=== PATIENT | female | born 1950 | race Caucasian/White ===

== ENCOUNTER 2017-05-23 15:47 | Inpatient (IN) ==
[2017-05-23] MEDS ORDERED: NS 1,000 ML IV ONE ×2 (15:53→17:04)
[2017-05-23] MEDS ORDERED: ONDANSETRON 4 MG/2 ML INJECTION IVP PRN (15:55)
--- NOTE | 2017-05-23 16:05 | History & Physical Report ---
History of Present Illness Date: 05/23/17 Chief complaint: empyema, squamous cell carcinoma postresection, C. difficile HPI: Mrs Abarca is a complicated 66 yr old female who underwent a left lower lobe resection secondary to squamous cell carcinoma 04/09/17 at [facility] under the care of Dr. Jens Navarro. She had been discharged, however, followed with Dr. Navarro in the outpatient setting on May 08 and was found to be dehydrated with difficult oral intake. She was then found to have a left hemothorax with empyema. She was readmitted to [facility] from 05/08/17 through 05/17/17 for ongoing treatment. She was also under the care of not only Dr. Jens Navarro, but also Dr. Wayne with infectious disease. Initially she had a pigtail catheter placed in the left lung. Intrapleural TPA was administered into pigtail catheter for 2 days, with a good output. The tube was then removed once drainage improved. It is reported that she did have an episode of atrial fibrillation during her hospital stay. He did continue to require oxygen since her initial surgery. Once she was stable for discharge. She was sent to [facility] care of [place] on 05/17/17 to continue on IV vancomycin through 06/06/17 under the care of Dr. Wayne. Today Earlene was seen by Dr Arellano for follow up. Patient labs were obtained earlier in the day, revealing a white count of 13.6, hemoglobin of 8, hematocrit 27.4, platelet count 595, 83% neutrophils. He was 138, potassium 5.0 , BUN 35, creatinine 2.9. Transaminases are found to be elevated, AST-726, ALT- 253, alkaline phosphatase-221, LDH-20-83. Outpatient chest x-ray was obtained that did show a stable moderate left pleural effusion. Creatinine noted from 05/17 was 0.74 .Patient was on previous tx for C. difficile as well as IV vancomycin and Diflucan. Given these significant lab changes accompanied with complex medical comorbidities. The hospitalist services were contacted and accepted patient for direct admission to the ICU for further medical evaluation and workup. Patient is seen on arrival to [facility]. She does appear to be pale , yellow, frail. She is alert, able to give accurate history. She does report since discharge on 05/17/17. She has continued to "go downhill" with general fatigue and weakness. She describes this as "feeling sick all over". She reports having discomfort in her chest. Since her lung resection on 04/09/17. She states this pain has not changed since that time. He has continued to be on chronic oxygen since then. We did discuss advanced directives and she does wish to be a do not resuscitate. Recent comparable labs from 05/17/17 AST 19 ALT 18 Creatinine 0.74 Hemoglobin-7.3. Platelets-250 Vanco trough from 05/15/17-12.5 Culture and sensitivity from left pleural fluid collected on 05/09/17 is reviewed. This did reveal of Streptococcus Anginosus, sensitive to Rocephin, Levaquin, vancomycin. Patient has a known anaphylaxis ALLERGY to penicillin. Review of Systems All systems PM: 10-point ROS was reviewed, no additional remarkable complaints except - Constitutional Constitutional: Present: lethargy, malaise, weakness - Cardiovascular Cardiovascular: Present: chest pain (ongoing) - Gastrointestinal Gastrointestinal: Present: diarrhea, nausea - Integumentary/Breasts Integumentary Comments: bilateral lower ext edema Past Medical History A-fibrillation S/P left lower lobe, resection-squamous cell carcinoma Recent history of C. difficile Hypertension COPD GERD Anemia Chronic tobacco dependence Brain meningioma Surgical History: Left lower lobectomy- 04/09/17 (Dr Gilbert). Appendectomy. Hysterectomy. Abdominal surgeries for adhesions. Right knee scope. Right rotator cuff repair Family History Updates: Father-COPD. Mother-[place]. 7 Siblings- positive history for brain cancer, lung cancer, pancreatic cancer - Social History Smoking status: Former smoker (48 pk yr smoker) Substance use type: does not use Alcohol intake frequency: does not drink Housing: house Household members: children Social history: NO Local PCP Following with Dr Mendoza at [facility] of [place] Oncologist- Dr Arellano Medications Allergies Allergy/AdvReac Type Severity Reaction Status Date / Time cephalexin [From Keflex] Allergy Severe Anaphylactic Verified 05/05/17 23:22 Shock morphine Allergy Severe Anaphylactic Verified 05/05/17 23:22 Shock Penicillins Allergy Severe Anaphylactic Verified 05/05/17 23:22 Shock Exam Telemetry Rhythm: Sinus Rhythm - Constitutional Present: mild distress, well nourished, well developed - Routine HEENT Exam Eye: Present: EOMI ENT: Present: mucous membranes dry, dentition normal - Routine Respiratory Exam Present: crackles. Absent: wheezes - Routine Cardiovascular Exam Present: RRR, S1, S2. Absent: murmur - Routine Abdominal Exam Present: soft, normoactive bowel sounds, non distended. Absent: tenderness - Routine Extremities Exam Present: edema (bilateral lower ext edema) - Routine Skin Exam Present: intact, pallor, warm - Routine Neurological Exam Present: alert, oriented X3, CN II-XII intact - Routine Psychiatric Exam Present: normal affect, cooperative Results - Labs CBC & Chem 7: 05/23/17 16:17 05/23/17 16:18 Assessment and Plan (1) JOSE LUIS (acute kidney injury) Current visit: Yes Status: Acute (2) Transaminitis Current visit: Yes Status: Acute Assessment and Plan: Impression Suspect septic shock - Leukocytosis, hypotension - known infection (empyema) Acute kidney injury- creatinine on admission 3.0, up from baseline 0.7 Transaminitis-present on admission Elevated INR- POA- 5.48 Leukocytosis- POA- 12.6 Anemia- Chronic Thrombocytosis Recent C. difficile- Tx course completed Recent resection of squamous cell carcinoma, status post lobectomy Recent and continued treatment for empyema Chronic respiratory failure with hypoxia postoperatively Atrial fibrillation-chronic anticoagulation on Eliquis COPD GERD Plan Admit patient to ICU under the care of Dr. Lantigua for above listed acute illnesses, accompanied with chronic comorbidities. Obtain the following laboratory studies on admission, CBC, CMP, INR, LDH, magnesium, phosphorus, lactate, blood cultures 2 Obtain Vanco trough on admission. It appears that vancomycin has been held since 05/20 as off was reported to be elevated over 40. Place for pharmacist. Patient is to be on vancomycin treatment through 06/06/17 as per recent infectious disease recommendations. This consultation to Dr. Esteban to continue to follow patient while at [facility]. Continue with oxygen therapy to maintain adequate saturations. Given underlying history of COPD Will scheduled DuoNeb 4 times a day and Pulmicort twice a day. Family does report that patient had completed course of treatment for C. difficile and had a negative follow up test. Have asked nursing staff to obtain this result from [facility]. SCDs to bilateral lower extremity for DVT prophylaxis Awaiting home medications to be reconciled. It does appear that she has been on amiodarone, which may cause transaminitis. She does wish to be a do not resuscitate and this order is written. Will discuss further orders and plan of care with attending, Dr. Lantigua. 45 min of time spent on ICU admission, orders, patient's with attending, pharmacy, nursing staff, warehouse delivery manager DVT Prophylaxis: SCD's, Eliquis Resuscitation Status: Do Not Resuscitate - Time spent with patient Time with patient PN: 50 minutes Coordination of Care: >50% of visit spent providing counseling/coordination of care - Physician Narrative Physician: Praveen Lantigua MD Narrative: Date: 05/23/17 Time: 1605 Have independently interviewed and examined pt. Chart reviewed. Case discussed with Dr Arellano, family, and my CR[employer] SCENE TECHNICIAN. Care plan developed with my supervision; agree with above. Recovering at [facility] for recent hospitalization for empyema. On Vancomycin - doses needed to be held as levels elevated. Oral drive has been diminished-not feeling hungry, not eating well. Stools moving-recent C diff but has resolved. No ab pain. Breathing feeling more congested. Does not cough. Slight pain to surgical area with cough. Increased swelling to both legs 2 days ago. Today, noted to be much weaker. When trying to get out of bed, almost collapsed. See in Dr Arellano's office for evaluation. BP very low-given IVF. Lab obtained showing significant abnormalities - increased creatinine and liver enzymes. With worsening status, Hospitalist notified and patient placed in inpatient admission at [facility] for treatment. Lungs: decreased, course. CV: regular AB: soft nt/nd BS decreased EXT: 1+ edema MSE: awake, some confusion. Plan: Inpatient admission to CCU for treatment of suspected sepsis - anticipate greater than 2 midnights of care needed. IVF for support. Given 1L in clinic and blood pressures low. Will give 2L IV bolus (30ml/kg bolus would be 1950cc). Vanco level obtained - therapeutic. Will concern for worsening infection/sepsis will initiate clindamycin for coverage. ID evaluation tomorrow. Gabriel placed due to JOSE LUIS. Hold Eliquis. Hold Amiodarone due to increased LFT. Zofran prn nausea and Dilaudid prn pain. Check CT chest without contrast tomorrow at Dr Navarro's recommendation. Overall prognosis worrisome. Needs aggressive supportive care for good outcome. Patient dose wish DNR and order is written. Hospital Course Summary Disclaimer: The visit summary below is not to be considered part of the above Progress Note. Hospital Course: Impression Acute kidney injury- creatinine on admission 3.0, up from baseline 0.7 Transaminitis-present on admission Elevated INR- POA- 5.48 Leukocytosis- POA- 12.6 Anemia- Chronic Thrombocytosis Recent C. difficile- Tx course completed Recent resection of squamous cell carcinoma, status post lobectomy Recent and continued treatment for empyema Chronic respiratory failure with hypoxia postoperatively Atrial fibrillation-chronic anticoagulation on Eliquis COPD GERD Plan Admit patient to ICU under the care of Dr. Lantigua for above listed acute illnesses, accompanied with chronic comorbidities. Obtain the following laboratory studies on admission, CBC, CMP, INR, LDH, magnesium, phosphorus, lactate, blood cultures 2 Obtain Vanco trough on admission. It appears that vancomycin has been held since 05/20 as off was reported to be elevated over 40. Place for pharmacist. Patient is to be on vancomycin treatment through 06/06/17 as per recent infectious disease recommendations. This consultation to Dr. Esteban to continue to follow patient while at [facility]. Continue with oxygen therapy to maintain adequate saturations. Given underlying history of COPD Will scheduled DuoNeb 4 times a day and Pulmicort twice a day. Family does report that patient had completed course of treatment for C. difficile and had a negative follow up test. Have asked nursing staff to obtain this result from [facility]. SCDs to bilateral lower extremity for DVT prophylaxis Awaiting home medications to be recomcilied. It does appear that she has been on amiodarone, which may cause transaminitis. She does wish to be a do not resuscitate and this order is written. Will discuss further orders and plan of care with attending, Dr. Lantigua. 45 min of time spent on ICU admission, orders, patient's with attending, pharmacy, nursing staff, warehouse delivery manager
[2017-05-23 16:11] VITALS: BMI 22.4
[2017-05-23] MEDS ORDERED: VANCOMYCIN - PHARMACY CONSULT MC ONE (16:36)
[2017-05-23] MEDS: CLINDAMYCIN PB 600 MG/50 ML BAG IV SCH (18:26)
[2017-05-23] MEDS ORDERED: HYDROMORPHONE 2 MG/ML INJECTION IVP PRN (18:28)
[2017-05-23] MEDS ORDERED: NS 1,000 ML IV SCH (19:00)
[2017-05-23] MEDS ORDERED: BUDESONIDE INH.SOLN 0.5mg/2ml NEB IPPB SCH (19:00)
[2017-05-23] MEDS ORDERED: ALBUTEROL/IPRATROPIUM 2.5mg-0.5mg/3ml NEB IPPB SCH (19:00)
[2017-05-23] MEDS: LACTOBACILLUS (15B cfu) CAPSULE PO SCH (19:02)
[2017-05-23] MEDS: BUDESONIDE INH.SOLN 0.5mg/2ml NEB AEROSOL SCH (20:25)
[2017-05-23] MEDS: ALBUTEROL/IPRATROPIUM 2.5mg-0.5mg/3ml NEB AEROSOL SCH (20:26)
--- NOTE | 2017-05-23 20:27 | Sepsis Event Note ---
Sepsis Assessment - Evaluation SIRS Criteria: WBC > 12,000 Severe Sepsis: Creatinine >2.0 mg/dL or 0.5 mg/dL above baseline Septic Shock: Lactate > or equal to 4 mg/dL - Focused Exam-within 6 hours of IVF Bolus Respiratory exam: Present: decreased breath sounds, distant breath sounds, diminished air movement. Absent: accessory muscle use, respiratory distress Cardiovascular exam: Present: RRR, no murmur Capillary Refill: < 2Seconds Peripheral pulse strength: Weak Peripheral pulse location: Radial Skin Temperature: Warm Skin Color: Normal for Patient - Bedside Monitoring Date bedside monitoring was performed: 05/23/17 Time bedside monitoring was performed: 20:27
[2017-05-24] MEDS: CLINDAMYCIN PB 600 MG/50 ML BAG IV SCH ×2 (00:35→07:05)
[2017-05-24] MEDS ORDERED: NS 1,000 ML IV SCH (01:35)
[2017-05-24 04:16] VITALS: TEMP 97.9
[2017-05-24] MEDS: ALBUTEROL/IPRATROPIUM 2.5mg-0.5mg/3ml NEB AEROSOL SCH (06:53)
[2017-05-24] MEDS: BUDESONIDE INH.SOLN 0.5mg/2ml NEB AEROSOL SCH (06:53)
[2017-05-24] MEDS ORDERED: NS FLUSH BAG 500ml IV PRN (08:00)
[2017-05-24 08:07] VITALS: BP 95/54
[2017-05-24] MEDS: LACTOBACILLUS (15B cfu) CAPSULE PO SCH (09:07)
--- NOTE | 2017-05-24 09:08 | Infectious Disease Consult ---
Infectious Disease Consult Date of Consultation: 05/24/17 Requesting Physician: Praveen Lantigua Reason for Consultation: antibiotic recs History of Present Illness: Ms. Abarca is a woman with SCC of the lung, s/p LLL lobectomy on 04/09. She developed empyema with Strep anginosus and prevotella as well as C difficile. She underwent thoracentesis 05/14 with TPA. She has a severe allergy to PCN, so she was treated with Vancomycin and flagyl with a plan to complete 4 weeks on . She was seen by Dr. Kaylee Wayne at [facility]. She was discharged to a SNF on , and then saw Dr. Arellano yesterday in clinic. He evaluated her, and she was found to have JOSE LUIS with a creatinine of 2.9, and elevated LFTs. She complained of fatigue and not feeling well. CXR showed a stable pleural effusion. She was admitted to the ICU here because there were no ICU beds in [place]. Her Vanco trough was 22 yesterday. She was started on Clindamycin. Overnight, she became less responsive and more hypotensive per RN. Her urine output was only about 26cc's overnight. I was asked to help with her antibiotics. Family is at bedside this am. She has agonal breathing and is not verbally responsive. Blood cx from yesterday are NGTD. She is a DNR. Medications Home Medications Medication Instructions Recorded Confirmed Type Amiodarone [Pacerone] 200 mg PO DAILY 05/23/17 05/23/17 History Apixaban [Eliquis] 5 mg PO DAILY 05/23/17 05/23/17 History Ascorbate Calcium [Vitamin C] 500 mg PO DAILY 05/23/17 05/23/17 History DiltiaZEM CD [Cardizem Cd] 120 mg PO DAILY 05/23/17 05/23/17 History Docusate Sodium [Colace] 1 cap PO BID 05/23/17 05/23/17 History Fluconazole [Diflucan] 1 tab PO DAILY 05/23/17 05/23/17 History Fluticasone/Salmeterol [Advair Hfa 2 puff INH DAILY 05/23/17 05/23/17 History 45-21 Mcg Inhaler] Furosemide [Lasix] 1 tab PO BID 05/23/17 05/23/17 History Ipatropium/Albuterol [Combivent 2 puff INH QID 05/23/17 05/23/17 History Respimat Inhaler] L. Acidophilus/Lactobac Spor 1 each PO TID 05/23/17 05/23/17 History [Acidophilus X-Str Captab] Magnesium Oxide [Magnesium] 1 tab PO BID 05/23/17 05/23/17 History Megestrol Acetate [Megace Es] 800 mg PO DAILY 05/23/17 05/23/17 History Metoprolol Succinate 50 mg PO DAILY 05/23/17 05/23/17 History Multi-Vitamin + Iron [Theragran - 1 tab PO DAILY 05/23/17 05/23/17 History H] Venlafaxine HCl [Venlafaxine HCl 37.5 mg PO DAILY 05/23/17 05/23/17 History ER] metroNIDAZOLE [Flagyl] 500 mg PO DAILY 05/23/17 05/23/17 History Allergies Allergy/AdvReac Type Severity Reaction Status Date / Time cephalexin [From Keflex] Allergy Severe Anaphylactic Verified 05/05/17 23:22 Shock morphine Allergy Severe Anaphylactic Verified 05/05/17 23:22 Shock Penicillins Allergy Severe Anaphylactic Verified 05/05/17 23:22 Shock [facility] Patient Stated Medical History Cataracts Yes: Removed "years ago" Cardiac Arrhythmia Yes: afib Hypertension Yes Chronic Obstructive Pulmonary Yes Disease (COPD) Gastroesophageal Reflux Yes Disease Anemia Yes: on iron tablets Clostridium Difficile Yes: Had C-diff at [place] [facility] in April. Tested negative on 05/16/17 Depression Yes SCC cancer of the lung Surgical History: Left lower lobectomy- 04/09/17 (Dr Gilbert). Appendectomy. Hysterectomy. Abdominal surgeries for adhesions. Right knee scope. Right rotator cuff repair Family History: Father had COPD, mother had ND - Social History Smoking status: Former smoker (48 pk yr smoker) Review of Systems ROS unobtainable: due to mental status (she is not verbally responsive) Exam Vital Signs: Temperature 97.9 F 05/24/17 04:00 Pulse Rate 75 05/24/17 08:01 Respiratory Rate 21 05/24/17 08:01 Blood Pressure 95/54 05/24/17 08:01 Pulse Oximetry 91 05/24/17 08:01 Height/Weight/BMI: Height 1.7 m Weight 64.9 kg Body Mass Index 22.4 - Constitutional Present: obtunded, other (appears ill with agonal breathing) - Routine HEENT Exam Head: Present: normocephalic, atraumatic ENT: Present: mucous membranes dry Comments: eyes open, not tracking - Routine Neck Exam Absent: swelling - Routine Respiratory Exam Present: CTA bilaterally, diminished air movement (at bases) - Routine Cardiovascular Exam Present: RRR - Routine Abdominal Exam Present: soft, non distended, non tender Comments: hypoactive bowel sounds - Routine Extremities Exam Absent: cyanosis, clubbing, edema - Routine Skin Exam Present: intact. Absent: rash - Routine Neurological Exam Present: altered mental status - Routine Psychiatric Exam Present: unable to assess Results - Labs CBC & Chem 7: 05/24/17 05:09 05/24/17 05:09 Microbiology Results: Microbiology 05/23/17 18:07 Urine, Cath Gabriel Urine Culture - Preliminary Culture Initiated - Results Pending Impression: Severe sepsis, unclear source LLL pulmonary abscess/empyema, s/p LLL lobectomy 04/09 for lung SCC, s/p pigtail drainage 05/09, culture with S. anginosus, prevotella, s/p TPA R pleural effusion, s/p thoracentesis Recent C difficile JOSE LUIS Shock liver Anapphylactic reaction to PCN AMS, acute Recommendation: Her prognosis is extremely guarded, and her family, at bedside, are not wanting heroic measures. Would give her some gram-negative coverage with Azactam, and use flagyl instead of clindamycin in case she is having recurrent C. difficile. Family does not want a CT scan. Family might be considering stopping everything in the near future. Case was discussed with Dr. Lantigua.
[2017-05-24] MEDS ORDERED: MetroNIDAZOLE PB 500 MG/100 ML BAG IV SCH (09:15)
[2017-05-24] MEDS ORDERED: AZTREONAM 1 G in NS 100 ML IV SCH (09:15)
--- NOTE | 2017-05-24 09:21 | Progress Note ---
- Date 05/24/17 Subjective: F/U: Septic shock, Shock liver/kidney Declined this am. Breathing shallow/agonal. Will turn head to verbal stimuli from family in room. Little verbal interaction. Lab worsening. IVF decreased overnight as lungs where sounding more congested. Objective Vital signs: Temperature 97.9 F 05/24/17 04:00 Pulse Rate 75 05/24/17 08:01 Respiratory Rate 21 05/24/17 08:01 Blood Pressure 95/54 05/24/17 08:01 Pulse Oximetry 91 05/24/17 08:01 Height/Weight/BMI: Height 1.7 m Weight 64.9 kg Body Mass Index 22.4 - Constitutional Present: moderate distress, average body habitus, diaphoretic. Absent: combative - Routine HEENT Exam Head: Present: normocephalic, atraumatic Eye: Present: EOMI, PERRL ENT: Present: mucous membranes dry - Routine Respiratory Exam Present: decreased breath sounds, respiratory distress (Shallow breathing, agonal ), wheezes, crackles - Routine Cardiovascular Exam Present: RRR, no murmur - Routine Abdominal Exam Present: soft, non distended, non tender. Absent: normoactive bowel sounds ( decreased ) - Routine Extremities Exam Present: edema (+2 BLE) - Routine Skin Exam Present: dry. Absent: warm (Cool skin ) - Routine Neurological Exam Present: altered mental status Results - Labs CBC & Chem 7: 05/24/17 05:09 05/24/17 05:09 Microbiology Results: Microbiology 05/23/17 18:07 Urine, Cath Gabriel Urine Culture - Preliminary Culture Initiated - Results Pending Assessment and Plan (1) JOSE LUIS (acute kidney injury) Current visit: Yes Status: Acute (2) Transaminitis Current visit: Yes Status: Acute Assessment and Plan: Impression Suspect septic shock - Leukocytosis, hypotension - known infection (empyema) Acute kidney injury- creatinine on admission 3.0, up from baseline 0.7 Transaminitis-present on admission Elevated INR- POA- 5.48 Leukocytosis- POA- 12.6 Anemia- Chronic Thrombocytosis Recent C. difficile- Tx course completed Recent resection of squamous cell carcinoma, status post lobectomy Recent and continued treatment for empyema Chronic respiratory failure with hypoxia postoperatively Atrial fibrillation-chronic anticoagulation on Eliquis COPD GERD Plan Declined this am. Breathing shallow/agonal. Will turn head to verbal stimuli from family in room. Little verbal interaction. Lab worsening. IVF decreased overnight as lungs where sounding more congested. Dr Esteban has seen patient and making antibiotic adjustments to expand coverage. With patient's continued decline, overall prognosis poor - doubtful patient will make recovery. Family at bedside and understand. Will continue with treatment - add low dose lorazepam for comfort measures. DVT Prophylaxis: SCD's, Coumadin Resuscitation Status: Do Not Resuscitate - Physician Narrative Physician: Praveen Lantigua MD Narrative: Date: 05/24/17 Time: 09 Hospital Course Summary Disclaimer: The visit summary below is not to be considered part of the above Progress Note. Hospital Course: Impression Acute kidney injury- creatinine on admission 3.0, up from baseline 0.7 Transaminitis-present on admission Elevated INR- POA- 5.48 Leukocytosis- POA- 12.6 Anemia- Chronic Thrombocytosis Recent C. difficile- Tx course completed Recent resection of squamous cell carcinoma, status post lobectomy Recent and continued treatment for empyema Chronic respiratory failure with hypoxia postoperatively Atrial fibrillation-chronic anticoagulation on Eliquis COPD GERD Plan Admit patient to ICU under the care of Dr. Lantigua for above listed acute illnesses, accompanied with chronic comorbidities. Obtain the following laboratory studies on admission, CBC, CMP, INR, LDH, magnesium, phosphorus, lactate, blood cultures 2 Obtain Vanco trough on admission. It appears that vancomycin has been held since 05/20 as off was reported to be elevated over 40. Place for pharmacist. Patient is to be on vancomycin treatment through 06/06/17 as per recent infectious disease recommendations. This consultation to Dr. Esteban to continue to follow patient while at [facility]. Continue with oxygen therapy to maintain adequate saturations. Given underlying history of COPD Will scheduled DuoNeb 4 times a day and Pulmicort twice a day. Family does report that patient had completed course of treatment for C. difficile and had a negative follow up test. Have asked nursing staff to obtain this result from [facility]. SCDs to bilateral lower extremity for DVT prophylaxis Awaiting home medications to be recomcilied. It does appear that she has been on amiodarone, which may cause transaminitis. She does wish to be a do not resuscitate and this order is written. Will discuss further orders and plan of care with attending, Dr. Lantigua. 45 min of time spent on ICU admission, orders, patient's with attending, pharmacy, nursing staff, house registry rn
--- NOTE | 2017-05-24 09:38 | Death Note ---
Pronouncement Note - Date and Time of Date of : 05/24/17 Time of : 09:20 - PCOD Preliminary cause of : Septic shock - Summary Additional details: Empyema - Additional Data Confirmation of : no pulse Family: at bedside Additional persons at bedside: teacher assistant Attending/PCP notified?: Yes Attending physician: Praveen Lantigua MD Was code activated?: No (DNR - made DNR at time of admission ) Autopsy requested?: No license registration examiner notified?: Yes Organ bank notified?: Yes
[2017-05-24 10:16] VITALS: PULSE 22; RESP 6; O2SAT 84
--- NOTE | 2017-05-24 19:13 | Death Note ---
Providers - Provider Admitting clinician: Praveen Lantigua Attending Physician: Praveen Lantigua Consults: Physician Consult: Brenda Esteban Reason For Exam: Antibiotic recommendations - on Vanco for empyema Pronouncing clinician: Praveen Lantigua Diagnosis - PCOD Cause of : Septic shock - Contributing Factors (1) JOSE LUIS (acute kidney injury) Status: Acute (2) Transaminitis Status: Acute (3) Empyema Status: Acute (4) Squamous cell carcinoma lung Status: Acute Summary - Date and Time Date of admission: 05/23/17 15:47 Date of : 05/24/17 Time of : 09:20 - Summary Details: Mrs Abarca is a complicated 66 yr old female who underwent a left lower lobe resection secondary to squamous cell carcinoma 04/09/17 at [facility] under the care of Dr. Jens Navarro. She had been discharged, however, followed with Dr. Navarro in the outpatient setting on May 08 and was found to be dehydrated with difficult oral intake. She was then found to have a left hemothorax with empyema. She was readmitted to [facility] from 05/08/17 through 05/17/17 for ongoing treatment. She was also under the care of not only Dr. Jens Navarro, but also Dr. Wayne with infectious disease. Initially she had a pigtail catheter placed in the left lung. Intrapleural TPA was administered into pigtail catheter for 2 days, with a good output. The tube was then removed once drainage improved. It is reported that she did have an episode of atrial fibrillation during her hospital stay. He did continue to require oxygen since her initial surgery. Once she was stable for discharge. She was sent to [facility] on 05/17/17 to continue on IV vancomycin through 06/06/17 under the care of Dr. Wayne. Today Earlene was seen by Dr Arellano for follow up. Patient labs were obtained earlier in the day, revealing a white count of 13.6, hemoglobin of 8, hematocrit 27.4, platelet count 595, 83% neutrophils. He was 138, potassium 5.0 , BUN 35, creatinine 2.9. Transaminases are found to be elevated, AST-726, ALT- 253, alkaline phosphatase-221, LDH-20-83. Outpatient chest x-ray was obtained that did show a stable moderate left pleural effusion. Creatinine noted from 05/17 was 0.74 .Patient was on previous tx for C. difficile as well as IV vancomycin and Diflucan. Given these significant lab changes accompanied with complex medical comorbidities. The hospitalist services were contacted and accepted patient for direct admission to the ICU for further medical evaluation and workup. Patient is seen on arrival to [facility]. She does appear to be pale , yellow, frail. She is alert, able to give accurate history. She does report since discharge on 05/17/17. She has continued to "go downhill" with general fatigue and weakness. She describes this as "feeling sick all over". She reports having discomfort in her chest. Since her lung resection on 04/09/17. She states this pain has not changed since that time. He has continued to be on chronic oxygen since then. We did discuss advanced directives and she does wish to be a do not resuscitate. Plan 05/23/17 Admit patient to ICU under the care of Dr. Lantigua for above listed acute illnesses, accompanied with chronic comorbidities. Obtain the following laboratory studies on admission, CBC, CMP, INR, LDH, magnesium, phosphorus, lactate, blood cultures 2 Obtain Vanco trough on admission. It appears that vancomycin has been held since 05/20 as off was reported to be elevated over 40. Place for pharmacist. Patient is to be on vancomycin treatment through 06/06/17 as per recent infectious disease recommendations. This consultation to Dr. Esteban to continue to follow patient while at [facility]. Continue with oxygen therapy to maintain adequate saturations. Given underlying history of COPD Will scheduled DuoNeb 4 times a day and Pulmicort twice a day. Family does report that patient had completed course of treatment for C. difficile and had a negative follow up test. Have asked nursing staff to obtain this result from [facility]. SCDs to bilateral lower extremity for DVT prophylaxis Awaiting home medications to be reconciled. It does appear that she has been on amiodarone, which may cause transaminitis. She does wish to be a do not resuscitate and this order is written. Will discuss further orders and plan of care with attending, Dr. Lantigua. 45 min of time spent on ICU admission, orders, patient's with attending, pharmacy, nursing staff, warehouse clerk 05/24/17 Declined this am. Breathing shallow/agonal. Will turn head to verbal stimuli from family in room. Little verbal interaction. Lab worsening. IVF decreased overnight as lungs where sounding more congested. Dr Esteban has seen patient and making antibiotic adjustments to expand coverage. With patient's continued decline, overall prognosis poor - doubtful patient will make recovery. Family at bedside and understand. Will continue with treatment - add low dose lorazepam for comfort measures. Patient at 0920 on 05/24/17. Family members at bedside. - Additional Data Confirmation of as documented by pronouncing clinician: no pulse Family: at bedside Attending/PCP notified?: Yes Attending physician: Praveen Lantigua MD Was code activated?: No (DNR at time of admission ) property insurance claims examiner notified?: Yes Hospice patient?: No
== END 2017-05-24 09:20 | disposition expired | DRG 871 ==
LOC: CCU 15:47
PROVIDERS: ADMIT Hospitalist; ATTEND Hospitalist